=== PATIENT | female | born 1960 | race Caucasian/White ===

== ENCOUNTER 2019-08-27 15:42 | Emergency (ER) | payer BC ==
[~2019-08-27] VITALS: Ht 162.6 cm; Wt 102.5 kg
[2019-08-27] MEDS ORDERED: COSENTYX (150 MG/1 M (15:50)
[2019-08-27] MEDS ORDERED: PREDNISONE 5 MG5 M1 PO (15:50)
[2019-08-27] MEDS ORDERED: METHOTREXATE 22.5 M1 PO (15:50)
[2019-08-27] MEDS ORDERED: TRAMADOL100 MG PO (15:51)
[2019-08-27] MEDS ORDERED: FOLIC ACID1 MG PO (15:51)
[2019-08-27 16:32] LABS: URINE BILIRUBIN NEGATIVE (Negative); URINE BLOOD NEGATIVE (Negative); URINE CLARITY CLEAR; URINE COLOR YELLOW; URINE GLUCOSE-RANDOM NEGATIVE (Negative); URINE KETONES NEGATIVE (Negative); URINE LEUKOCYTES-REFLEX NEGATIVE (Negative); URINE NITRITE-REFLEX NEGATIVE (Negative); URINE PROTEIN NEGATIVE (Negative); URINE SPECIFIC GRAVITY 1.025 (1.005-1.030); URINE UROBILINOGEN 0.2 E.U./dl (0.2-1.0)
[2019-08-27 16:46] LABS: ABSOLUTE BASOPHILS 0.1 thou/uL (0.0-0.2); ABSOLUTE EOSINOPHILS 0.1 thou/uL (0.0-0.7); ABSOLUTE LYMPHOCYTES 1.7 thou/uL (0.8-5.3); ABSOLUTE MONOCYTES 0.8 thou/uL (0.0-1.2); ABSOLUTE NEUTROPHILS 7.3 thou/uL (1.6-8.1); BASOPHILS 0.9 %; EOSINOPHILS 1.5 %; HEMATOCRIT 38.7 % (37.0-47.0); HEMOGLOBIN 13.1 gm/dL (12.0-15.0); LYMPHOCYTES 17.1 %; MCH 28.2 pg (26.0-34.0); MCHC 33.8 g/dL (28.0-37.0); MCV 83.5 fL (80.0-100.0); MONOCYTES 7.8 %; MPV 7.2 fl. (7.2-11.1); NUCLEATED RBCS 0 /100WBC; PLATELET COUNT* 305 thou/uL (150-400); POLYS 72.7 %; RBC 4.63 mil/uL (4.20-5.00); RDW-CV 14.7 % (10.5-14.5); WBC 10.1 thou/uL (4.0-11.0)
[2019-08-27 16:56] LABS: CALCIUM 8.7 mg/dL (8.5-10.1); CREATININE 0.7 mg/dL (0.6-1.3); POTASSIUM 3.7 mmol/L (3.5-5.1)
[2019-08-27 17:00] LABS: ALBUMIN 3.4 g/dL (3.4-5.0); TOTAL BILIRUBIN 0.3 mg/dL (<0.1-1.0); TOTAL PROTEIN 7.7 g/dL (6.4-8.2)
[2019-08-27] MEDS ORDERED: TORADOL 10 MG T10 MG PO (18:35)
[2019-08-27] MEDS ORDERED: ROBAXIN 750 MG750 MG PO (18:35)
[2019-08-27 18:38] VITALS: BP 158/76
== END 2019-08-27 18:39 | disposition home or self-care (01) ==
LOC: M.ERS 15:42
PROVIDERS: Personal Emergency Response Attendant
DX: M62.830 Muscle spasm of back (principal); M54.5 Low back pain; H50.00 Unspecified esotropia; L40.50 Arthropathic psoriasis, unspecified; Z88.5 Allergy status to narcotic agent; Z87.442 Personal history of urinary calculi